=== PATIENT | female | born 1955 | race Caucasian/White ===

== ENCOUNTER 2019-11-17 10:55 | Inpatient (IN) | payer OTHER ==
[~2019-11-17] VITALS: Ht 167.6 cm; Wt 56.7 kg
[2019-11-17] MEDS ORDERED: CLARITIN10 M1 PO (11:08)
[2019-11-19] MEDS ORDERED: ZITHROMAX200 MG PO (13:54)
[2019-11-19] MEDS ORDERED: PROTONIX40 MG PO (13:55)
[2019-11-19] MEDS ORDERED: INTESTINEX680 M1 PO (13:55)
== END 2019-11-19 16:41 | disposition home or self-care (01) | DRG 372 ==
LOC: ER 10:55 → MEDJ 18:09
PROVIDERS: ADMIT Internal Medicine
PROC: BW21ZZZ Computerized Tomography (CT Scan) of Abdomen and Pelvis (ICD-10-PCS; principal; 2019-11-17)
PROC: BW21Y0Z Computerized Tomography (CT Scan) of Abdomen and Pelvis using Other Contrast, Unenhanced and Enhanced (ICD-10-PCS; 2019-11-17)
DX: A04.8 Other specified bacterial intestinal infections (principal); K92.1 Melena; R18.8 Other ascites; Q61.02 Congenital multiple renal cysts; E86.0 Dehydration; E87.8 Other disorders of electrolyte and fluid balance, not elsewhere classified; N20.0 Calculus of kidney